=== PATIENT | male | born 1975 | race Hispanic/Latino ===

== ENCOUNTER 2019-07-28 09:54 | Emergency (ER) | payer OTHER ==
[2019-07-28 11:09] LABS: Hematocrit 50.1 % (35.5-45.6); Hemoglobin 16.8 gm/dl (11.8-15.2); Mean Corpuscular HGB Conc 33 % (32-34); Mean Corpuscular Volume 93 fl (84-94); Platelet Count 267 K/mm3 (140-440); Red Blood Count 5.42 M/mm3 (3.65-5.03); Red Cell Distribution Width 13.4 % (13.2-15.2)
[2019-07-28 11:34] LABS: Alanine Aminotransferase 18 units/L (7-56); Albumin 4.6 g/dL (3.9-5); BUN/Creatinine Ratio 18; Blood Urea Nitrogen 20 mg/dL (9-20); Calcium 9.8 mg/dL (8.4-10.2); Hemolysis Index 14
[2019-07-28 11:52] LABS: Basophils % (Manual) 0 % (0.0-1.8); Eosinophils % (Manual) 0 % (0.0-4.3); Total Cells Counted 100
[2019-07-28 11:53] LABS: Anisocytosis Few; Large Platelets Rare; Platelet Estimate Consistent w Auto
--- NOTE | 2019-07-28 12:26 | XRay Report ---
ABDOMEN 3 VIEW(S) INDICATION / CLINICAL INFORMATION: fever. COMPARISON: None available. FINDINGS: TUBES / LINES: None. BOWEL GAS PATTERN: No significant abnormality. FREE AIR / EXTRALUMINAL GAS: None seen. ADDITIONAL FINDINGS: Clear lungs with normal heart size. IMPRESSION: 1. No significant abnormality. Signer Name: Prince Pierre MD Signed: 07/28/2019 12:22 PM Workstation Name: [id number]
--- NOTE | 2019-07-28 12:35 | Emergency Department Report ---
ED Abdominal Pain HPI - General Chief Complaint: Abdominal Pain Stated Complaint: ABD PAIN/ LOTS OF PRESSURE Time Seen by Provider: 07/28/19 12:33 Source: patient Mode of arrival: Wheelchair Limitations: No Limitations - History of Present Illness Initial Comments: 44 YO WDWN MALE COMES TO ER WITH ACUTE ONSET ABD PAIN P 1H OF WORKING OUT TODAY WHILE AT THE [employer]. HE RESTED WITHOUT RELIEF. HE THEN HAD NORMAL BM; DENIES FLATUS BEING AN ISSUE. THIS CONCERNED HIM SO HE COMES TO ER. PT AMBULATORY AND IN NAD ON EXAM PMH HAD [facility] RECENTLY AND ALL WAS FINE RX NONE EATS LOW CARB DIET ACTIVE OCC CIG Complaint: abdominal pain -: Sudden, hour(s) Location: diffuse Migration to: no migration Quality: cramping Consistency: intermittent Improves With: nothing Worsens With: nothing Associated Symptoms: denies other symptoms - Related Data Allergies Allergy/AdvReac Type Severity Reaction Status Date / Time No Known Allergies Allergy Unverified 07/28/19 10:09 ED Review of Systems ROS: Stated complaint: ABD PAIN/ LOTS OF PRESSURE Other details as noted in HPI Comment: All other systems reviewed and negative ED Past Medical Hx - Past Medical History Previous Medical History?: No - Surgical History Past Surgical History?: No - Family History Family history: no significant - Social History Smoking Status: Current Every Day Smoker Substance Use Type: None ED Physical Exam - General Limitations: No Limitations General appearance: alert, in no apparent distress - Head Head exam: Present: atraumatic, normocephalic - Eye Eye exam: Present: normal appearance - ENT ENT exam: Present: mucous membranes moist - Neck Neck exam: Present: normal inspection - Respiratory Respiratory exam: Present: normal lung sounds bilaterally. Absent: respiratory distress - Cardiovascular Cardiovascular Exam: Present: regular rate, normal rhythm. Absent: systolic murmur, diastolic murmur, rubs, gallop - GI/Abdominal GI/Abdominal exam: Present: soft, normal bowel sounds - Rectal Rectal exam: Present: deferred - Extremities Exam Extremities exam: Present: normal inspection - Back Exam Back exam: Present: normal inspection - Neurological Exam Neurological exam: Present: alert, oriented X3 - Psychiatric Psychiatric exam: Present: normal affect, normal mood - Skin Skin exam: Present: warm, dry, intact, normal color. Absent: rash ED Course Vital Signs 07/28/19 10:07 Temperature 98.9 F Pulse Rate 56 L Respiratory 16 Rate Blood Pressure 103/68 O2 Sat by Pulse 90 Oximetry ED Medical Decision Making - Lab Data Result diagrams: 07/28/19 10:49 07/28/19 10:49 - Radiology Data Radiology results: report reviewed, image reviewed - Medical Decision Making Lab Results 07/28/19 07/28/19 07/28/19 Range/Units 10:49 10:49 12:30 WBC 17.2 H (4.5-11.0) K/mm3 RBC 5.42 H (3.65-5.03) M/mm3 Hgb 16.8 H (11.8-15.2) gm/dl Hct 50.1 H (35.5-45.6) % MCV 93 (84-94) fl MCH 31 (28-32) pg MCHC 33 (32-34) % RDW 13.4 (13.2-15.2) % Plt Count 267 (140-440) K/mm3 Add Manual Diff Complete Total Counted 100 Seg Neuts % (Manual) 85.0 H (40.0-70.0) % Band Neutrophils % 0 % Lymphocytes % (Manual) 9.0 L (13.4-35.0) % Reactive Lymphs % (Man) 0 % Monocytes % (Manual) 6.0 (0.0-7.3) % Eosinophils % (Manual) 0 (0.0-4.3) % Basophils % (Manual) 0 (0.0-1.8) % Metamyelocytes % 0 % Myelocytes % 0 % Promyelocytes % 0 % Blast Cells % 0 % Nucleated RBC % Not Reportable Seg Neutrophils # Man 14.6 H (1.8-7.7) K/mm3 Band Neutrophils # 0.0 K/mm3 Lymphocytes # (Manual) 1.5 (1.2-5.4) K/mm3 Abs React Lymphs (Man) 0.0 K/mm3 Monocytes # (Manual) 1.0 H (0.0-0.8) K/mm3 Eosinophils # (Manual) 0.0 (0.0-0.4) K/mm3 Basophils # (Manual) 0.0 (0.0-0.1) K/mm3 Metamyelocytes # 0.0 K/mm3 Myelocytes # 0.0 K/mm3 Promyelocytes # 0.0 K/mm3 Blast Cells # 0.0 K/mm3 WBC Morphology Not Reportable Hypersegmented Neuts Not Reportable Hyposegmented Neuts Not Reportable Hypogranular Neuts Not Reportable Smudge Cells Not Reportable Toxic Granulation Not Reportable Toxic Vacuolation Not Reportable Dohle Bodies Not Reportable Pelger-Huet Anomaly Not Reportable Trisha Rods Not Reportable Platelet Estimate Consistent w auto Clumped Platelets Not Reportable Plt Clumps, EDTA Not Reportable Large Platelets Rare Giant Platelets Not Reportable Platelet Satelliting Not Reportable Plt Morphology Comment Not Reportable RBC Morphology Not Reportable Dimorphic RBCs Not Reportable Polychromasia Not Reportable Hypochromasia Not Reportable Poikilocytosis Not Reportable Anisocytosis Few Microcytosis Not Reportable Macrocytosis Not Reportable Spherocytes Not Reportable Pappenheimer Bodies Not Reportable Sickle Cells Not Reportable Target Cells Not Reportable Tear Drop Cells Not Reportable Ovalocytes Not Reportable Helmet Cells Not Reportable [place] Bodies Not Reportable [place] Rings Not Reportable Regan Cells Not Reportable Bite Cells Not Reportable Crenated Cell Not Reportable Elliptocytes Not Reportable Acanthocytes (Spur) Not Reportable Rouleaux Not Reportable Hemoglobin C Crystals Not Reportable Schistocytes Not Reportable Malaria parasites Not Reportable Norbert Bodies Not Reportable Hem Pathologist Commnt No Sodium 141 (137-145) mmol/L Potassium 5.0 (3.6-5.0) mmol/L Chloride 103.0 (98-107) mmol/L Carbon Dioxide 22 (22-30) mmol/L Anion Gap 21 mmol/L BUN 20 (9-20) mg/dL Creatinine 1.1 (0.8-1.5) mg/dL Estimated GFR > 60 ml/min BUN/Creatinine Ratio 18 % Glucose 108 H (75-100) mg/dL Calcium 9.8 (8.4-10.2) mg/dL Total Bilirubin 0.80 (0.1-1.2) mg/dL AST 24 (5-40) units/L ALT 18 (7-56) units/L Alkaline Phosphatase 54 (35-129) units/L Total Protein 7.8 (6.3-8.2) g/dL Albumin 4.6 (3.9-5) g/dL Albumin/Globulin Ratio 1.4 % Urine Color Yellow (Yellow) Urine Turbidity Turbid (Clear) Urine pH 5.0 (5.0-7.0) Ur Specific [place] 1.019 (1.003-1.030) Urine Protein <15 mg/dl (Negative) mg/dL Urine Glucose (UA) Neg (Negative) mg/dL Urine Ketones 20 (Negative) mg/dL Urine Blood Sm (Negative) Urine Nitrite Neg (Negative) Urine Bilirubin Neg (Negative) Urine Urobilinogen < 2.0 (<2.0) mg/dL Ur Leukocyte Esterase Neg (Negative) Urine WBC (Auto) 14.0 H (0.0-6.0) /HPF Urine RBC (Auto) 11.0 (0.0-6.0) /HPF U Epithel Cells (Auto) < 1.0 (0-13.0) /HPF Urine Mucus Few /HPF Vital Signs 07/28/19 10:07 Temperature 98.9 F Pulse Rate 56 L Respiratory 16 Rate Blood Pressure 103/68 O2 Sat by Pulse 90 Oximetry LABS NOTED I SUSPECT HE IS HEME CONCENTRATED GIVEN EXERCISE FOR OVER AN HOUR HE HAS NO FEVER NO TACHY NO HYPOTENSION NO N/V/D DURING ER STAY UA NOTED XRAY NOTED CT NOTED MEDICATED NS 1L WHILE IN ER. PT EDUCATED ON FINDINGS OF ALL STUDIES AND HE WILL FOLLOW UP INSTRUCTED. ON FINAL EXAM PT WAS EATING FAST FOOD MEAL WITHOUT DIFFICULTY. - Differential Diagnosis RO ACUTE ABD PROCESS Critical care attestation.: If time is entered above; I have spent that time in minutes in the direct care of this critically ill patient, excluding procedure time. ED Disposition Clinical Impression: Abdominal pain Disposition: - TO HOME OR SELFCARE Is pt being admited?: No Does the pt Need Aspirin: No Condition: Stable Instructions: Acute Abdominal Pain (ED) Additional Instructions: FOLLOW UP WITH PCP/GI AND UROLOGY REFERRALS BELOW MOTRIN OR TYLENOL FOR PAIN OR FEVER STAY WELL HYDRATED Referrals: YOLI CARVER MD [Staff Physician] - 3-5 Days RAPHAEL JEAN BAPTISTE MD [Staff Physician] - 3-5 Days NIEVES EVANS MD [Staff Physician] - 3-5 Days MAGNO LOVE MD [Staff Physician] - 3-5 Days ROSANA MORENO MD [Staff Physician] - 3-5 Days Time of Disposition: 14:31
[2019-07-28] MEDS ORDERED: SODIUM CHLORIDE 0.9% 1000 ML 1,000 ML IV ONE ×2 (12:39→14:59)
[2019-07-28 12:59] LABS: Bilirubin,Urine NEG (Negative); Blood,Urine SM (Negative); Color,Urine Yellow (Yellow); Mucus,Urine FEW /HPF; Protein,Urine <15 mg/dL mg/dL (Negative); Urobilinogen,Urine < 2.0 mg/dL (<2.0)
[2019-07-28] MEDS ORDERED: cefTRIAXone/NS 1 GM/50 ML 1 GM/50 ML BAG IV ONE (13:30)
--- NOTE | 2019-07-28 14:22 | Cat Scan Report ---
CT ABDOMEN AND PELVIS WITHOUT CONTRAST HISTORY: Abdominal pain. COMPARISON: A same-day abdominal x-ray is the only relevant comparative imaging. TECHNIQUE: Routine abdominal and pelvic CT exam performed without contrast. Lack of intravenous cont rast limits evaluation of the vascular and solid organs.. All CT scans at this location are performed using CT dose reduction for ALARA by means of automated exposure control. FINDINGS: CT ABDOMEN: Lung Bases: Clear. Liver: Mild enlargement of the liver. The right lobe measures 17.5 cm in length. Normal density of th e liver. No mass or cyst. Biliary: Normal gallbladder and bile ducts. Stomach: Normal. Spleen: Small spleen but there are questionable splenic varices. Pancreas: The pancreatic body and tail are relatively large compared to the pancreatic head. Normal d ensity of the pancreas and no peripancreatic fluid or inflammatory changes. Adrenals: No significant abnormality. Kidneys: A 1 mm urinary calculus versus parenchymal calcification in the renal pyramid. This is locat ed in the upper midportion of the kidney. No other calculi. No renal mass or cyst. The renal collecti ng systems and ureters are nondilated. Lymphatics: No lymphadenopathy. Vasculature: No significant abnormality. Bowel/Peritoneum: No significant abnormality. No free air. No free fluid. Normal appendix. CT PELVIC: : Normal urinary bladder and prostate. A small right inguinal hernia with fluid and fat in the colin ia sac. Status post mastectomy. Lymphatics: No lymphadenopathy. Osseous Structures: No aggressive appearing osseous lesions. Additional Findings: None IMPRESSION: 1. Enlargement of the pancreatic body and tail suggesting possible mild acute or chronic pancreatitis . No pancreatic pseudocyst or other complication. 2. Mild hepatic enlargement with no identified etiology 3. Questionable splenic varices. 4. A possible 1 mm nonobstructive left renal calculus. 5. Small right inguinal hernia but no bowel within the hernia sac. Signer Name: Keanu Mederos MD Signed: 07/28/2019 2:17 PM Workstation Name: [id number]
[2019-07-28 16:42] VITALS: BP 124/74
== END 2019-07-28 17:00 | disposition home or self-care (01) ==
LOC: ED 09:54
DX: R10.30 Lower abdominal pain, unspecified (principal); F17.200 Nicotine dependence, unspecified, uncomplicated
CPT/HCPCS: 36415; 74022; 74176; 80053; 81001; 83690; 85007; 85025; 87086; 96365; 96366; 99284; J0696; J7030